=== PATIENT | male | born 1985 | race Two or more races ===

== ENCOUNTER 2018-07-18 22:58 | Emergency (ER) | payer SELFPAY ==
[2018-07-18] MEDS ORDERED: MORPHINE SULFATE 10 MG/ML INJ IM ONE (23:08)
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
[2018-07-19] MEDS ORDERED: NORMAL SALINE 1000 ML 1,000 ML IV ONE (00:42)
[2018-07-19] MEDS ORDERED: FENTANYL CITRATE INJ/PF 100 MCG/2 ML AMPUL IV ONE (00:42)
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
[2018-07-19] MEDS ORDERED: HYDROCODONE/ACETAMINOPHEN 5-325 MG (6 TAB/ER DISP) PO PRN (03:08)
[2018-07-19 03:57] VITALS: BP 123/87
== END 2018-07-19 03:35 | disposition home or self-care (01) ==
LOC: EDBD → ER 22:58
DX: S20.211A Contusion of right front wall of thorax, initial encounter (principal); R07.9 Chest pain, unspecified; V18.4XXA Pedal cycle driver injured in noncollision transport accident in traffic accident, initial encounter
CPT/HCPCS: 99284; 96372; 96361; 96374; 71101; 71275; J3010; J2270; J7030